=== PATIENT | female | born 1990 | race Caucasian/White ===

== ENCOUNTER → 2025-06-02 09:56 | Outpatient (REF) | payer OTHER, SELFPAY | LOC: PNTC 09:56 | PROVIDERS: ATTENDING PHYSICIAN Student in an Organized Health Care Education/Training Program | DX: O98.012 Tuberculosis complicating pregnancy, second trimester (principal); O99.322 Drug use complicating pregnancy, second trimester | CPT/HCPCS: 76805 ==

== ENCOUNTER → 2025-07-01 13:24 | Outpatient (REF) | payer OTHER, SELFPAY | LOC: PNTC 13:24 | PROVIDERS: ATTENDING PHYSICIAN Obstetrics & Gynecology | DX: O99.322 Drug use complicating pregnancy, second trimester (principal); O98.012 Tuberculosis complicating pregnancy, second trimester | CPT/HCPCS: 76811; 76817 ==